=== PATIENT | female | born 1970 | race Caucasian/White ===

== ENCOUNTER → 2022-07-16 14:35 | Outpatient (BNVA) | payer BC, SELFPAY | PROVIDERS: PCP Family Medicine; Visit Provider Family Medicine | DX: N91.0 Primary amenorrhea (principal) | CPT/HCPCS: 83001 ==

== ENCOUNTER 2022-09-02 13:58 | Outpatient (CLI) | payer BC, SELFPAY ==
--- NOTE | 2022-09-02 14:07 | MM_ITS ---
WS: [id number] BILATERAL 3D TOMOSYNTHESIS DIGITAL DIAGNOSTIC MAMMOGRAPHY WITH CAD CLINICAL INFORMATION: LUMP IN RIGHT BREAST HISTORY: Palpable RIGHT breast lump and soreness. History of bilateral breast implants. COMPARISON: 2007 TECHNIQUE: Bilateral CC, MLO, and ML views. FINDINGS: Bilateral breast implants. Breast implants appear mammographically intact. Scattered fibroglandular densities bilaterally. Palpable marker anterior RIGHT breast. Dense underlyi ng parenchymal tissue with asymmetric density in this area. Ultrasound of this area described below. LEFT breast is unremarkable. ULTRASOUND BREAST RIGHT TECHNIQUE: Ultrasound right breast focused area of concern. CLINICAL INFORMATION: LUMP IN RIGHT BREAST FINDINGS: Ultrasound RIGHT breast at the 10:00 position in the area of palpable concern. Normal underlying dens e parenchymal tissue. No cystic or solid lesions. No suspicious lesions to target for biopsy. Recomme nd return to annual screening mammography.
--- NOTE | 2022-09-02 14:33 | MM_ITS ---
WS: [id number] BILATERAL 3D TOMOSYNTHESIS DIGITAL DIAGNOSTIC MAMMOGRAPHY WITH CAD CLINICAL INFORMATION: LUMP IN RIGHT BREAST HISTORY: Palpable RIGHT breast lump and soreness. History of bilateral breast implants. COMPARISON: 2007 TECHNIQUE: Bilateral CC, MLO, and ML views. FINDINGS: Bilateral breast implants. Breast implants appear mammographically intact. Scattered fibroglandular densities bilaterally. Palpable marker anterior RIGHT breast. Dense underlyi ng parenchymal tissue with asymmetric density in this area. Ultrasound of this area described below. LEFT breast is unremarkable. ULTRASOUND BREAST RIGHT TECHNIQUE: Ultrasound right breast focused area of concern. CLINICAL INFORMATION: LUMP IN RIGHT BREAST FINDINGS: Ultrasound RIGHT breast at the 10:00 position in the area of palpable concern. Normal underlying dens e parenchymal tissue. No cystic or solid lesions. No suspicious lesions to target for biopsy. Recomme nd return to annual screening mammography. MM/[place] [id number] IMPRESSION: BI-RADS: 2-Benign FOLLOW UP: 1 Year Follow-up Recommend return to annual screening mammography.
--- NOTE | 2022-09-02 14:38 | US_ITS ---
WS: [id number] BILATERAL 3D TOMOSYNTHESIS DIGITAL DIAGNOSTIC MAMMOGRAPHY WITH CAD CLINICAL INFORMATION: LUMP IN RIGHT BREAST HISTORY: Palpable RIGHT breast lump and soreness. History of bilateral breast implants. COMPARISON: 2007 TECHNIQUE: Bilateral CC, MLO, and ML views. FINDINGS: Bilateral breast implants. Breast implants appear mammographically intact. Scattered fibroglandular densities bilaterally. Palpable marker anterior RIGHT breast. Dense underlyi ng parenchymal tissue with asymmetric density in this area. Ultrasound of this area described below. LEFT breast is unremarkable. ULTRASOUND BREAST RIGHT TECHNIQUE: Ultrasound right breast focused area of concern. CLINICAL INFORMATION: LUMP IN RIGHT BREAST FINDINGS: Ultrasound RIGHT breast at the 10:00 position in the area of palpable concern. Normal underlying dens e parenchymal tissue. No cystic or solid lesions. No suspicious lesions to target for biopsy. Recomme nd return to annual screening mammography. US/US breast RT limited* [id number] IMPRESSION: BI-RADS: 2-Benign FOLLOW UP: 1 Year Follow-up Recommend return to annual screening mammography.
== END 2022-09-02 13:59 | disposition home or self-care (01) ==
LOC: RAD 13:58
PROVIDERS: PCP Family Medicine; Visit Provider Family Medicine
DX: N63.11 Unspecified lump in the right breast, upper outer quadrant (principal)
CPT/HCPCS: 76642; 77062; 77066; G0279

== ENCOUNTER → 2023-03-02 16:04 | Outpatient (BNVA) | payer BC, SELFPAY | PROVIDERS: PCP Family Medicine; Visit Provider Family Medicine | DX: E03.9 Hypothyroidism, unspecified (principal); F41.9 Anxiety disorder, unspecified | CPT/HCPCS: 84443 ==

== ENCOUNTER → 2023-03-06 07:24 | Outpatient (BNVA) | payer BC, SELFPAY | PROVIDERS: PCP Family Medicine; Visit Provider Clinical Nurse Specialist Adult Health | DX: N39.0 Urinary tract infection, site not specified (principal); F41.9 Anxiety disorder, unspecified | CPT/HCPCS: 81000; 87086 ==

== ENCOUNTER 2023-04-14 07:41 | Emergency (ER) | payer BC, SELFPAY ==
[2023-04-14 07:49] VITALS: BP 177/102; PULSE 117; RESP 18; TEMP 36.5; O2SAT 99
[2023-04-14 07:52] VITALS: BP 177/102; PULSE 108; RESP 15; TEMP 36.5; O2SAT 98; BMI 25.2
--- NOTE | 2023-04-14 07:56 | CTR_ITS ---
PROCEDURE INFORMATION: Exam: CTA Head Without And With Contrast, Arteriography Exam date and time: 04/14/2023 8:16 AM Age: 52 years old Clinical indication: Stroke-like symptoms; Altered mental status/memory loss; RT upper extremity and RT lower extremity weakness; Additional info: R lip, arm, leg numbness TECHNIQUE: Imaging protocol: Computed tomographic angiography of the head without and with contrast. Exam focused on the arteries. 3D rendering (Not supervised by radiologist): MIP reconstructed images were created by the technologist. Radiation optimization: All CT scans at this facility use at least one of these dose optimization techniques: automated exposure control; mA and/or kV adjustment per patient size (includes targeted exams where dose is matched to clinical indication); or iterative reconstruction. Contrast material: OMNI 350; Contrast volume: 100 ml; Contrast route: INTRAVENOUS (IV); Other technique: STROKE PROTOCOL was implemented. REPORTING DATA: Count of CT and Cardiac NM exams in prior 12 months: This patient has received 0 known CTs and 0 known cardiac nuclear medicine studies in the 12 months prior to the current study. COMPARISON: No relevant prior studies available. RADIATION DOSE METRICS: Total DLP (mGy-cm): 1027.86 FINDINGS: ANTERIOR CIRCULATION: Right internal carotid artery: Intracranial segment is patent with no significant stenosis or occlusion. No aneurysm. Right middle cerebral artery: No occlusion or significant stenosis. No aneurysm. Right anterior cerebral artery: No occlusion or significant stenosis. No aneurysm. Left internal carotid artery: Intracranial segment is patent with no significant stenosis. No aneurysm. Left middle cerebral artery: No occlusion or significant stenosis. No aneurysm. Left anterior cerebral artery: No occlusion or significant stenosis. No aneurysm. POSTERIOR CIRCULATION: Right vertebral artery: No occlusion or significant stenosis. No aneurysm. Left vertebral artery: No occlusion or significant stenosis. No aneurysm. Basilar artery: No occlusion or significant stenosis. No aneurysm. Right posterior cerebral artery: No occlusion or significant stenosis. No aneurysm. Left posterior cerebral artery: No occlusion or significant stenosis. No aneurysm. HEAD: Brain: Normal. No hemorrhage. Unremarkable white matter. No mass effect. Ventricles: No hydrocephalus. Bones/joints: No acute abnormality. No acute fracture. Paranasal sinuses: Visualized sinuses are normal. No fluid levels. Mastoid air cells: Visualized mastoids are normal. No mastoid effusion. Soft tissues: Unremarkable. PROCEDURE INFORMATION: Exam: CTA Neck With Contrast Exam date and time: 04/14/2023 8:16 AM Age: 52 years old Clinical indication: Stroke-like symptoms; Altered mental status/memory loss; RT upper extremity and RT lower extremity weakness; Additional info: R lip, arm, leg numbness TECHNIQUE: Imaging protocol: Computed tomographic angiography of the neck with contrast. 3D rendering (Not supervised by radiologist): MIP reconstructed images were created by the technologist. Radiation optimization: All CT scans at this facility use at least one of these dose optimization techniques: automated exposure control; mA and/or kV adjustment per patient size (includes targeted exams where dose is matched to clinical indication); or iterative reconstruction. Contrast material: OMNI 350; Contrast volume: 100 ml; Contrast route: INTRAVENOUS (IV); REPORTING DATA: Count of CT and Cardiac NM exams in prior 12 months: This patient has received 0 known CTs and 0 known cardiac nuclear medicine studies in the 12 months prior to the current study. COMPARISON: MR shoulder RT wo con* [id number] 11/04/2017 7:12 AM RADIATION DOSE METRICS: Total DLP (mGy-cm): 1027.86 FINDINGS: Right common carotid artery: No stenosis. No dissection or occlusion. Right internal carotid artery: No stenosis of the extracranial segment. No dissection or occlusion. Right external carotid artery: No occlusion or stenosis of the origin. Left common carotid artery: No stenosis. No dissection or occlusion. Left internal carotid artery: No stenosis of the extracranial segment. No dissection or occlusion. Left external carotid artery: No occlusion or stenosis of the origin. Right vertebral artery: No stenosis. No dissection or occlusion. Left vertebral artery: No stenosis. No dissection or occlusion. Soft tissues: Bilateral partially imaged mammary implants. No significant soft tissue swelling. Bones/joints: No acute fracture. CT/CT angio headneck* [id number] IMPRESSION: 1. No acute intracranial abnormality identified. 2. No acute intracranial vascular abnormality identified. ASSESSMENT: ASPECTS (Elizabeth Stroke Program Early CT Score) is 10. IMPRESSION: No acute extracranial vascular abnormality identified. REFERENCES: NASCET CRITERIA. The degree of stenosis in the cervical segment of the internal carotid artery is based on NASCET criteria. Normal is no stenosis. Mild is less than 50% stenosis. Moderate is 50-69% stenosis. Severe is 70% to 99% stenosis. Total occlusion is no detectable patent lumen.
[2023-04-14 07:57] VITALS: BP 165/111; PULSE 96; RESP 15; O2SAT 95
--- NOTE | 2023-04-14 07:58 | ED_ITS ---
HPI - Neuro Symptoms/Deficit General: Chief Complaint: Neuro Symptoms/Deficit Stated Complaint: stroke like systomes Time Seen by Provider: 04/14/23 07:43 Source: patient Mode of arrival: ambulatory Limitations: no limitations History of Present Illness: Patient is a nice 52-year-old female who presents to ED today with a complaint of strokelike symptoms. She states when she awoke this morning she noticed paresthesias to the right side of her lips, right arm, and right leg. She has not noticed any weakness. She does state yesterday while vacuuming she noticed some mild paresthesias to the right arm that was not overly concerning to her but states this morning when it was accompanied with right perioral symptoms and leg symptoms she became concerned. She reached out to her PCP Dr. Naik who recommended she come to the ED. PMH is significant for anxiety and hypothyroidism. 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 She denies history of cardiac arrhythmia. She has not noticed any facial drooping, slurred speech, trouble with gait or balance. Onset (ago): hour(s) Location: right face, right arm and right leg History of same: No Severity: mild Quality: tingling Relieving factors: none Exacerbating factors: none On Anticoagulants: No Associated symptoms: Reports no associated symptoms; Deny chest pain, headache(s), malaise, nausea, syncope or vomiting Treatments Prior to Arrival: none Review of Systems Const: Denies: fever(s), chills, body aches, fatigue or malaise Eyes: Denies: change in vision, blurry vision, photophobia, floaters or seeing flashes ENMT: Reports: nasal congestion and other (sneezing); Denies: throat pain, odynophagia, ear or mastoid pain, nasal discharge or sinus pain Card: Denies: chest pain, palpitations, irregular heart rhythm, edema, swelling of feet/ankles, lightheadedness, syncope, pre-syncope, dyspnea on exertion, orthopnea, leg pain with exertion or acrocyanosis Resp: Denies: dyspnea, productive cough or pain on inspiration GI: Denies: abdominal pain, nausea, vomiting, heartburn or diarrhea : Denies: flank pain, difficulty voiding, dysuria, urinary frequency or urinary urgency Musc: Denies: neck pain, back pain, extremity pain, extremity swelling, joint pain, joint swelling, joint redness, joint warmth, limited range of motion or muscle weakness Skin/Breast: Denies: rash Neuro: Reports: sensory changes; Denies: headache(s), weakness in extremities, difficulty walking, frequent falls, dizziness or Slurred speech present Psych: Reports: anxiety PFSH ED PFSH: Medical History Anxiety Hypothyroid Recurrent urinary tract infection Upper respiratory infection Surgical History History of endometrial ablation Family History Other CAD (coronary artery disease) Thyroid dysfunction Social History Smoking and tobacco status: never smoked Alcohol intake: never NIH stroke score NIHSS: Level Of Consciousness - 1a: 0 Level Of Consciousness Questions - 1b: Both Correct Level Of Consciousness Commands - 1c: Both Correct Best Gaze - 2: Normal Visual Ramos - 3: No Visual Loss Facial Palsy - 4: Normal Motor Arm Right - 5: No Drift Motor Arm Left - 5: No Drift Motor Leg Right - 6: No Drift Motor Leg Left - 6: No Drift Limb Ataxia - 7: Absent Sensory - 8: Mild To Moderate Loss Best Language - 9: No Aphasia Dysarthia - 10: Normal Extinction And Inattention - 11: 0 Score: Total Score: 1 Physical Exam Const: COMMON NORMALS: no acute distress, average body habitus, patient oriented x3, no limitations, healthy appearing, alert and well nourished GENERAL APPEARANCE: cooperative ORIENTATION/CONSCIOUSNESS: Yes awake, Yes oriented to person, Yes oriented to place and Yes oriented to time HENMT: COMMON NORMALS: normocephalic and atraumatic HEAD & SCALP: normal to inspection, normocephalic and atraumatic FACE & SINUS: normal facial exam MOUTH: tongue normal THROAT: posterior oropharynx normal Eye: COMMON NORMALS: Equal, round and reactive pupils present and EOMs intact bilaterally GENERAL EYE: appearance normal, both eyes and all related structures and normal light reflex VISUAL RAMOS: No peripheral vision loss and No central vision loss PUPIL: Yes Equal, round and reactive pupils present DIRECT OPHTHALMOSCOPY: Yes normal light reflex Neck/C-Spine: COMMON NORMALS: full ROM, no lymphadenopathy, supple and no meningeal signs Chest: COMMONS NORMALS: normal inspection of the chest and normal palpation of entire chest wall Resp: COMMON NORMALS: normal respiratory effort and clear to auscultation bilaterally AUSCULTATION: clear to auscultation bilaterally Cardio: COMMON NORMALS: regular rate and regular rhythm RATE: regular rate RHYTHM: regular rhythm GI: COMMON NORMALS: Normal to inspection, nondistended, normoactive bowel sounds present, Soft to palpation, non-tender, No hepatosplenomegaly present and no masses PALPATION: Yes Soft to palpation and Yes No hepatosplenomegaly present : COMMON NORMALS: Yes no CVA tenderness BLADDER/KIDNEY EXAM: Yes no CVA tenderness Back/Pelvis: COMMON NORMALS: no CVA tenderness and thoracic and lumbar spine normal to inspection Extremity: COMMON NORMALS: normal to inspection, full ROM, capillary refill normal, no joint enlargement, no clubbing, cyanosis or edema, no calf tenderness and no pedal edema GENERAL: Yes normal exam except as noted Neuro: MIMI COMA SCALE: document GCS findings Mimi coma scale eye opening: Spontaneous Mimi coma scale verbal response: Orientated Mimi coma scale motor response: Obey commands Miim coma scale total score: 15 COMMON NORMALS: patient oriented x3, CN's II-XII intact bilaterally, moves all e xtremities, no focal motor deficits and gait normal SENSORIUM/ORIENTATION: Yes alert, Yes oriented to person, Yes oriented to place and Yes oriented to time MENINGEAL SIGNS: Yes no meningeal signs COORDINATION/BALANCE: [id number]-kl-hbor test normal and uxsm-ey-cdgt test normal SPEECH: speech normal SENSORY EXAM: Yes other (she reports light touch sensation feels the same to bilateral UE/LEs) MOTOR EXAM: 5/5 motor strength present throughout COORDINATION: [id number]-[id number]-cqsm test normal and aaxb-jn-iwgh test normal Skin: COMMON NORMALS: no rashes or lesions noted GENERAL SKIN EXAM: no rashes or lesions noted Course Vital Signs: Vital signs: Vital Signs Temperature 97.7 F 04/14/23 07:52 Pulse Rate 77 04/14/23 08:56 Respiratory Rate 16 04/14/23 08:56 Blood Pressure 138/88 04/14/23 08:56 Pulse Oximetry 97 04/14/23 08:56 Oxygen Delivery Me thod Room Air 04/14/23 08:56 MDM - Neuro Symptoms/Deficit Medical Decision Making Patient is a nice 52-year-old female who presents to ED today with a complaint of paresthesias to her right lips, right arm, and right leg. She states she noticed some right arm paresthesias yesterday while vacuuming that subsided but states when she woke up this morning it had returned and was accompanied by paresthesias to the lips and right leg which made her concerned. On initial NIHSS testing she has a score of 1 given to her for the sensory abnormality. She does report paresthesias however with light touch she feels like sensation to the extremities are equal bilaterally. She has no known risk factors for CVA/TIA (although admittedly does not routinely check her blood pressure so is not sure if she has hypertension). She is not a tPA candidate. Patient underwent head CT/CTA head and neck imaging which was negative. Case discussed with Dr. Cintron who recommended discharge with follow-up with PCP and neurology. I do recommend she keep a blood pressure log and follow-up with them in regards to readings. Strict return ED precautions given. Lab Data 04/14/23 08:03 04/14/23 08:03 Radiology Impressions Head/Neck CTA 04/14/23 07:56 IMPRESSION: 1. No acute intracranial abnormality identified. 2. No acute intracranial vascular abnormality identified. ASSESSMENT: ASPECTS (Elizabeth Stroke Program Early CT Score) is 10. IMPRESSION: No acute extracranial vascular abnormality identified. REFERENCES: NASCET CRITERIA. The degree of stenosis in the cervical segment of the internal carotid artery is based on NASCET criteria. Normal is no stenosis. Mild is less than 50% stenosis. Moderate is 50-69% stenosis. Severe is 70% to 99% stenosis. Total occlusion is no detectable patent lumen. ADDENDUM: 04/14/23 0849 THIS REPORT CONTAINS FINDINGS THAT MAY BE CRITICAL TO PATIENT CARE. The findings were verbally communicated by me to FLORENCIA Zepeda via telephone conference at 8:48 AM CDT on 04/14/2023. The findings were acknowledged and understood. Laboratory Results WBC 4.9 10^3/uL (4.0-10.0) 04/14/23 08:03 RBC 4.94 10^6/uL (4.1-5.3) 04/14/23 08:03 Hgb 16.0 g/dL (11.5-15.3) H 04/14/23 08:03 Hct 47.0 % (37.0-47.0) 04/14/23 08:03 MCV 95.1 fl (81-99) 04/14/23 08:03 MCH 32.4 pg (28.0-34.0) 04/14/23 08:03 MCHC 34.0 g/dL (30.0-36.0) 04/14/23 08:03 RDW 13.1 % (12.1-15.1) 04/14/23 08:03 Plt Count 255 10^3/cmm (130-400) 04/14/23 08:03 MPV 11.4 fL (7.4-10.4) H 04/14/23 08:03 Neut % (Auto) 53.7 % 04/14/23 08:03 Lymph % (Auto) 35.6 % 04/14/23 08:03 Douglas % (Auto) 7.9 % 04/14/23 08:03 Eos % (Auto) 1.2 % 04/14/23 08:03 Baso % (Auto) 1.2 % 04/14/23 08:03 Neut # (Auto) 2.65 10^3/uL (1.8-7.7) 04/14/23 08:03 Lymph # (Auto) 1.8 10^3/uL (0.8-4.8) 04/14/23 08:03 Douglas # (Auto) 0.4 10^3/uL (0.2-0.9) 04/14/23 08:03 Eos # (Auto) 0.1 10^3/uL (0.0-0.8) 04/14/23 08:03 Baso # (Auto) 0.1 10^3/uL (0.0-0.1) 04/14/23 08:03 Nucleated RBC % (auto) 0 % 04/14/23 08:03 Nucleated RBCs # 0.0 /100WBC 04/14/23 08:03 PT 13.80 SECONDS (12.1-14.9) 04/14/23 08:03 INR 1.03 (0.8-1.2) 04/14/23 08:03 APTT 29.0 SECONDS (23.9-36.7) 04/14/23 08:03 Sodium 138 mmol/L (136-145) 04/14/23 08:03 Potassium 4.1 mmol/L (3.5-5.1) 04/14/23 08:03 Chloride 103 mmol/L (98-107) 04/14/23 08:03 Carbon Dioxide 22 mmol/L (22-29) 04/14/23 08:03 Anion Gap 17.1 (5-19) 04/14/23 08:03 BUN 13 mg/dL (6-20) 04/14/23 08:03 Creatinine 0.7 mg/dL (0.5-0.9) 04/14/23 08:03 GFR Calculation 87.5 mL/min (90-130) L 04/14/23 08:03 Glucose 111 mg/dL (65-115) 04/14/23 08:03 POC Glucose 99 mg/dL (70-110) 04/14/23 08:06 Calculated Osmolality 287 mOsm/kg (285-295) 04/14/23 08:03 Calcium 8.8 mg/dL (8.5-10.5) 04/14/23 08:03 Total Bilirubin 0.6 mg/dL (0.15-1.2) 04/14/23 08:03 AST 15 U/L (0-32) 04/14/23 08:03 ALT 12 U/L (0-33) 04/14/23 08:03 Alkaline Phosphatase 58 U/L (35-105) 04/14/23 08:03 Total Protein 7.1 g/dL (6.6-8.7) 04/14/23 08:03 Albumin 4.7 g/dL (3.5-5.2) 04/14/23 08:03 Globulin 2.4 g/dL (1.3-4.6) 04/14/23 08:03 Discharge Plan Discharge Patient Disposition: Home Clinical Impression: Paresthesia of right upper and lower extremity Condition: Stable Prescriptions: No Action norethindrone acetate 5 mg tablet 5 mg PO BEDTIME Tylenol Ex Str Rapid Release 500 mg Tablet 1,000 mg PO BEDTIME levothyroxine 75 mcg tablet 75 mcg PO QAM alprazolam 0.5 mg tablet 0.5 mg PO BEDTIME Rx Instructions: can take one extra tab if needed escitalopram oxalate 5 mg tablet 5 mg PO QAM Discharge Orders: Discharge ED (Routine); Ordered 04/14/23 Ordered By: Mary Zepeda Referrals: Manny Baxter MD [Primary Care Provider] - Activity Restrictions/Additional Instructions: As we discussed your head CT/CTA head and neck were negative. I would like you to follow-up with your primary care provider Dr. Baxter later this week for reevaluation. We have also placed a case management referral for a neurology follow-up. As we discussed you need to return to the emergency department for weakness, facial drooping, slurred speech, trouble with gait or balance, visual changes or visual loss, or any other concerns you may have. Coding Level of Care Code ED Physical Science Teacher for Christina Kapadia
--- NOTE | 2023-04-14 08:08 | ECG_ITS ---
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 Measurements Intervals [place] Rate: 93 P: 58 MN: 160 QRS: -33 QRSD: 86 T: 61 QT: 375 QTc: 468 Interpretive Statements SINUS RHYTHM INDETERMINATE AXIS POSSIBLE RIGHT VENTRICULAR CONDUCTION DELAY [RSR (QR) IN V1/V2] No previous ECG available for comparison Electronically Signed On 04-14-2023 17:44:19 CDT by Rey Villa M.D. [id number]
[2023-04-14] MEDS: labetalol 5 mg/mL SDV 20mL 10 MG IV (08:10)
[2023-04-14 08:11] LABS: Glucose Point of Care 99 mg/dL (70-110)
[2023-04-14 08:16] LABS: Basophils # 0.1 10^3/uL (0.0-0.1); Basophils % 1.2 %; Eosinophils # 0.1 10^3/uL (0.0-0.8); Eosinophils % 1.2 %; Lymphocytes # 1.8 10^3/uL (0.8-4.8); Lymphocytes % 35.6 %; Mean Corpuscular Hemoglobin 32.4 pg (28.0-34.0); Mean Corpuscular Volume 95.1 fl (81-99); Mean Platelet Volume 11.4 fL (7.4-10.4); Monocytes # 0.4 10^3/uL (0.2-0.9); Monocytes % 7.9 %; Neutrophils # 2.65 10^3/uL (1.8-7.7); Neutrophils % 53.7 %; Nucleated Red Blood Cells % 0 %; Platelet Count 255 10^3/cmm (130-400); Red Blood Count 4.94 10^6/uL (4.1-5.3); Red Cell Distribution Width 13.1 % (12.1-15.1); White Blood Count 4.9 10^3/uL (4.0-10.0)
[2023-04-14] MEDS: iohexol 350 mg/mL 500 mL Btl (per mL) IV (08:27)
[2023-04-14 08:30] LABS: INR 1.03 (0.8-1.2)
[2023-04-14 08:37] LABS: Alanine Aminotransferase 12 U/L (0-33); Albumin Level 4.7 g/dL (3.5-5.2); Alkaline Phosphatase 58 U/L (35-105); Aspartate Amino Transferase 15 U/L (0-32); Blood Urea Nitrogen 13 mg/dL (6-20); Calcium 8.8 mg/dL (8.5-10.5); Carbon Dioxide 22 mmol/L (22-29); Chloride 103 mmol/L (98-107); Globulin 2.4 g/dL (1.3-4.6); Glomerular Filtration Rate 87.5 mL/min (90-130); Glucose 111 mg/dL (65-115); Osmolality Calculated 287 mOsm/kg (285-295); Sodium 138 mmol/L (136-145); Total Bilirubin 0.6 mg/dL (0.15-1.2); Total Protein 7.1 g/dL (6.6-8.7)
[2023-04-14 08:42] LABS: Anion Gap 17.1 (5-19); Potassium 4.1 mmol/L (3.5-5.1)
[2023-04-14 08:56] VITALS: BP 138/88; PULSE 77; RESP 16; O2SAT 97
[2023-04-14 09:49] VITALS: BP 138/88; PULSE 77; RESP 16; O2SAT 97
--- NOTE | 2023-04-14 10:12 | DCPLANNER ---
Addendum entered by Daysi Humphries 04/22/23 13:38: Patient has a follow up appointment scheduled for Friday, July 07, 2023 at 9:[address] Aguayo at neurology. Original Note: campaign marketing manager had message to schedule a follow up appointment for patient with neurology. campaign marketing manager sent patients information to the front office staff at neurology. Patients information will be printed and reviewed. Clinic will call patient with appointment information.
== END 2023-04-14 09:51 | disposition home or self-care (01) ==
PROVIDERS: Emergency Provider Physician Assistant; PCP Family Medicine
DX: R20.2 Paresthesia of skin (principal); R09.81 Nasal congestion; R06.7 Sneezing; E03.9 Hypothyroidism, unspecified
CPT/HCPCS: 36416; 70496; 70498; 80053; 82962; 85025; 85610; 85730; 93005; 96374; 99285; J3490; Q9967

== ENCOUNTER 2023-04-22 16:21 | Outpatient (CLI) | payer BC, SELFPAY ==
--- NOTE | 2023-04-22 16:45 | MR_ITS ---
WS: [id number] MRI HEAD WITH CONTRAST TECHNIQUE: Sagittal T1, T2 axial, T2 axial FLAIR, axial susceptibility weighted imaging, axial diffus ion weighted images, and coronal T2 images were obtained. Pre and post-T1 axial and post T1 coronal i mages. ADC and FSPGR images. CLINICAL INFORMATION: cva COMPARISON: CTA 04/14/2023 FINDINGS: Tiny focus of partially restricted diffusion in the left anterior thalamus measuring 5 mm with a smal l amount of T2 hyperintensity and associated enhancement. This may present a tiny enhancing subacute lacunar infarct versus incidental tiny venous angioma. Otherwise no evidence of restricted diffusion. ] Ventricular system and basilar cisterns are patent. Mild periventricular white matter changes can be seen with hypertension, diabetes, or small vessel disease. No significant parenchymal volume loss. No rmal posterior fossa. Normal vascular flow voids at the skull base. No extra-axial fluid collections. Paranasal sinuses and mastoid air cells are well aerated. Normal posterior nasopharynx and paraphary ngeal fat. No hemosiderin on the susceptibility weighted imaging. No abnormal gadolinium enhancement. Normal dural venous sinuses. IMPRESSION: 1. Tiny focus of partially restricted diffusion in the left anterior thalamus measuring 5 mm with a small amount of T2 hyperintensity and associated enhancement. This may present a tiny enhancing subac [place] lacunar infarct considering patient's symptoms versus incidental tiny venous angioma. Otherwise n o evidence of restricted diffusion. 2. Mild periventricular white matter changes can be seen with hypertension, diabetes, and small vess el changes in a patient this age 3. No hemosiderin on susceptibility weighted imaging. 4. No abnormal gadolinium enhancement.
[2023-04-22] MEDS: gadobenate dimeglumine 20 mL vial IV (16:57)
== END 2023-04-22 16:22 | disposition home or self-care (01) ==
PROVIDERS: PCP Family Medicine; Visit Provider Family Medicine
DX: I63.9 Cerebral infarction, unspecified (principal)
CPT/HCPCS: 70553; A9577

== ENCOUNTER → 2023-07-07 10:43 | Outpatient (BNVA) | payer BC, SELFPAY | PROVIDERS: PCP Family Medicine; Referring Provider Physician Assistant; Visit Provider Psychiatry & Neurology Neurology | DX: I63.9 Cerebral infarction, unspecified (principal); E03.9 Hypothyroidism, unspecified | CPT/HCPCS: 36415; 83090; 85210; 85613; 85730; 86146; 86147 ==

== ENCOUNTER 2023-08-12 15:04 | Outpatient (CLI) | payer BC, SELFPAY ==
--- NOTE | 2023-08-12 15:15 | USCV_ITS ---
Yesica Mazariegos Age: 52 Gender: F : 1970 Exam Date: 08/12/2023 15:11 Ordering Phys: Mk Aguayo MD Technologist: CT [place]am [place] [facility] [place] Indication: cerebral infarction BP: 144 / 88 HR: 88 Rhythm: Sinus Technical Quality: Adequate MEASUREMENTS (Male / Female) Normal Values 2D ECHO LV Chamber Size 3.6 cm RV Chamber Size 2.4 cm LVOT Diameter 2.0 cm LV Ejection Fraction MOD 2C 53.3 % LV Ejection Fraction 2C AL 53.6 % LA Diameter 2.5 cm LA Width 2.6 cm LA Height 3.4 cm RA Width 3.0 cm RA Height 3.9 cm Aorta at Sinotubular Diameter 2.1 cm IVC Diameter 1.0 cm M-MODE Aortic Annulus Diameter 3.4 cm LA Ao Ratio MM 0.8 MV E Point Septal Separation 0.5 cm FINDINGS Left Ventricle This is a limited study. Two-dimensional images only are obtained. No M-mode or Doppler examination. The ventricle is normal in size and function. Ejection fraction 60 to 65%. No wall motion disturbances. Right Ventricle Normal right ventricular size and systolic function. Right Atrium The right atrium is normal in size. Left Atrium The left atrium is normal in size. Mitral Valve Structurally normal mitral valve. Aortic Valve Structurally normal trileaflet aortic valve. Tricuspid Valve Structurally normal tricuspid valve. Pulmonic Valve Pulmonic valve not well visualized. Pericardium Normal pericardium without effusion. Aorta Normal ascending aorta dimension. IVC The inferior vena cava appears normal. CONCLUSIONS This is a limited study. Two-dimensional images only are obtained. No M-mode or Doppler examination. The ventricle is normal in size and function. Ejection fraction 60 to 65%. No wall motion disturbances. There are no prior echocardiogram studies to compare. Dr. Sesar Perry MD (Electronically Signed) Final Date: 13 August 2023 07:33 S
== END 2023-08-12 15:05 | disposition home or self-care (01) ==
LOC: RAD 15:04
PROVIDERS: PCP Family Medicine; Visit Provider Psychiatry & Neurology Neurology
DX: I63.9 Cerebral infarction, unspecified (principal)
CPT/HCPCS: 84443; C8924

== ENCOUNTER 2023-09-03 10:32 | Outpatient (CLI) | payer BC, SELFPAY ==
--- NOTE | 2023-09-03 10:42 | MM_ITS ---
WS: [id number] BILATERAL 3D TOMOSYNTHESIS DIGITAL SCREENING MAMMOGRAPHY WITH CAD CLINICAL INFORMATION: SCREENING HISTORY: Screening mammogram. No current complaints. COMPARISON: 2021 TECHNIQUE: Bilateral CC and MLO views. FINDINGS: Bilateral breast implants appear intact. The breasts are composed of heterogeneous fibroglandular density tissue, which can limit the detectio n of small underlying mass lesions. No suspicious mass, asymmetry, calcifications, or architectural d istortion. No evidence of malignancy. IMPRESSION: MM/[place] [id number] BI-RADS: 2-Benign FOLLOW UP: 1 Year Follow-up Recommend return to annual screening mammography.
== END 2023-09-03 10:33 | disposition home or self-care (01) ==
PROVIDERS: PCP Family Medicine; Visit Provider Family Medicine
DX: Z12.31 Encounter for screening mammogram for malignant neoplasm of breast (principal)
CPT/HCPCS: 77063; 77067

== ENCOUNTER → 2023-10-12 12:06 | Outpatient (BNVA) | payer BC, SELFPAY | PROVIDERS: PCP Family Medicine; Visit Provider Clinical Nurse Specialist Adult Health | DX: F41.9 Anxiety disorder, unspecified (principal); N39.0 Urinary tract infection, site not specified | CPT/HCPCS: 81003; 87077; 87086; 87184 ==

== ENCOUNTER → 2023-11-04 08:34 | Outpatient (BNVA) | payer BC, SELFPAY | PROVIDERS: PCP Family Medicine; Visit Provider Clinical Nurse Specialist Adult Health | DX: N39.0 Urinary tract infection, site not specified (principal) | CPT/HCPCS: 81000; 87086 ==

== ENCOUNTER 2023-11-11 08:39 | Outpatient (CLI) | payer BC, SELFPAY ==
--- NOTE | 2023-11-11 09:00 | CT_ITS ---
WS: [id number] CT ABDOMEN AND PELVIS NONCONTRAST HISTORY: hematuria TECHNIQUE: Imaging performed through the abdomen and pelvis. Coronal and sagittal reformats are submi tted. All CT scans at [facility] use at least one of these dose optimization techniques: auto mated exposure control; mA and/or kV adjustment per patient size (includes targeted exams where dose is matched to clinical indication); or iterative reconstruction. DLP: 376.80 mGy.cm COMPARISON: None available. Lower thorax: Lung bases are clear. Visualized heart is normal. Small hiatal hernia. Liver: Hepatic steatosis. 8 mm low-attenuation mass RIGHT lobe is probably a cyst. Gallbladder: Normal gallbladder. No pericholecystic fluid or cholelithiasis. No gallbladder wall thic [place]. Pancreas: Normal size and attenuation. Normal pancreatic duct. No pancreatitis or mass. Spleen: Normal. Adrenal glands: Normal. No mass. Right kidney: Normal size kidney with no mass or hydronephrosis. Left kidney: Normal size kidney with no mass or hydronephrosis. Aorta: Normal abdominal aorta, no aneurysm or atherosclerosis. No free fluid, intraperitoneal air or significant lymphadenopathy. GI tract: Normal stomach. No small bowel obstruction. Marked diffuse constipation. Normal appendix. Abdominal wall: Negative. No hernia. Pelvis: Normal urinary bladder. Bulbous contour of the uterus. Suspect fibroid extending posterior fr om the RIGHT lateral uterus. Fibroid measures approximately 2.7 x 3.0 cm. Osseous structures: Unremarkable. IMPRESSION: 1. No renal obstruction or calcifications. 2. Diffuse marked constipation. 3. Normal appendix. 4. No ascites. 5. Posterior bulging from the uterus is probably a fibroid measuring 2.7 x 3.0 cm.
[2023-11-11] MEDS: iohexol 350 mg/mL 500 mL Btl (per mL) PO (09:23)
== END 2023-11-11 08:40 | disposition home or self-care (01) ==
LOC: RAD 08:40
PROVIDERS: PCP Family Medicine; Visit Provider Clinical Nurse Specialist Adult Health
DX: R31.9 Hematuria, unspecified (principal); N39.0 Urinary tract infection, site not specified
CPT/HCPCS: 74176; Q9967

== ENCOUNTER → 2024-03-07 14:02 | Outpatient (BNVA) | payer BC, SELFPAY | PROVIDERS: PCP Family Medicine; Visit Provider Family Medicine | DX: R30.0 Dysuria (principal) | CPT/HCPCS: 81000; 87086 ==

== ENCOUNTER 2024-07-07 08:23 | Outpatient (CLI) | payer BC, SELFPAY ==
[2024-07-07 08:51] LABS: Basophils # 0.1 10^3/uL (0.0-0.1); Basophils % 1.5 %; Eosinophils # 0.1 10^3/uL (0.0-0.8); Eosinophils % 1.9 %; Hematocrit 43.2 % (36-47); Lymphocytes % 38.1 %; Mean Corpuscular HGB Conc 34.3 g/dL (30-55); Mean Corpuscular Hemoglobin 34.3 pg (27-33); Mean Platelet Volume 11.4 fL (7.4-10.4); Monocytes # 0.5 10^3/uL (0.2-0.9); Monocytes % 8.8 %; Neutrophils % 49.5 %; Nucleated Red Blood Cells % 0 %; Platelet Count 272 10^3/cmm (157-399); Red Blood Count 4.32 10^6/uL (3.85-5.65); Red Cell Distribution Width 13.1 % (12.1-15.1); White Blood Count 5.25 10^3/uL (3.29-11.43)
[2024-07-07 09:18] LABS: Alanine Aminotransferase 15 U/L (0-33); Albumin Level 4.2 g/dL (3.5-5.2); Alkaline Phosphatase 50 U/L (35-105); Anion Gap 12.6 (5-19); Aspartate Amino Transferase 16 U/L (0-32); Blood Urea Nitrogen 13 mg/dL (6-20); Calcium 8.4 mg/dL (8.5-10.5); Carbon Dioxide 23 mmol/L (22-29); Chloride 104 mmol/L (98-107); Chol HDL Ratio 5.63 mg/dL (0.0-4.40); Cholesterol 197 mg/dL (0-200); Globulin 2.6 g/dL (1.3-4.6); Glomerular Filtration Rate 87.2 mL/min (90-130); Glucose 97 mg/dL (65-115); HDL Cholesterol 35 mg/dL (60-100); LDL Cholesterol Calculated 143 mg/dL (50-129); LDL HDL Ratio 4.09 RATIO (0.00-3.22); Osmolality Calculated 280 mOsm/kg (285-295); Potassium 4.6 mmol/L (3.5-5.1); Sodium 135 mmol/L (136-145); Thyroid Stimulating Hormone 1.57 uIU/mL (0.27-4.20); Total Bilirubin 0.6 mg/dL (0.15-1.2); Total Protein 6.8 g/dL (6.6-8.7); Triglycerides 97 mg/dL (0-150)
== END 2024-07-07 08:24 | disposition home or self-care (01) ==
LOC: LAB 08:23
PROVIDERS: PCP Family Medicine; Visit Provider Family Medicine
DX: Z00.00 Encounter for general adult medical examination without abnormal findings (principal)
CPT/HCPCS: 36415; 80053; 80061; 84443; 85025

== ENCOUNTER 2024-09-05 12:51 | Outpatient (CLI) | payer BC, SELFPAY ==
--- NOTE | 2024-09-05 12:52 | MM_ITS ---
WS: [id number] Bilateral screening 3D tomosynthesis digital mammogram, 09/05/2024 1:03 PM Clinical Data: SCREENING Comparison: 09/03/2023 Findings: No spiculated masses or clustered calcifications are seen. There are no secondary signs of carcinoma . Augmentation mammoplasty implants are intact. MM/MM scr BI tomosynthesis [id number] Impression: Negative bilateral mammogram unchanged. Recommend annual screening mammograms. BIRADS: 2 - Benign. FOLLOW UP: 1 Year Follow-up DENSITY: There are scattered areas of fibroglandular density. The CAD grade checker was used
== END 2024-09-05 12:52 | disposition home or self-care (01) ==
LOC: RAD 12:52
PROVIDERS: PCP Family Medicine; Visit Provider Family Medicine
DX: Z12.31 Encounter for screening mammogram for malignant neoplasm of breast (principal); R92.323 Mammographic fibroglandular density, bilateral breasts; Z98.82 Breast implant status
CPT/HCPCS: 77063; 77067